=== PATIENT | female | born 1985 | race Caucasian/White ===

== ENCOUNTER 2024-10-18 22:28 | Emergency (ER) | payer MEDICAID ==
[~2024-10-18] VITALS: Ht 170.2 cm; Wt 72.7 kg
[2024-10-18] MEDS ORDERED: DIPH25CA85 PO (23:09)
[2024-10-18] MEDS ORDERED: METH4TAB3 PO (23:09)
[2024-10-18] MEDS ORDERED: EPIN0.3P3 IM (23:09)
[2024-10-18 23:59] VITALS: BP 133/75; PULSE 88; RESP 16; TEMP 97.3; O2SAT 98
== END 2024-10-19 00:04 | disposition home or self-care (01) ==
LOC: EMS 22:30
DX: L25.9 Unspecified contact dermatitis, unspecified cause (principal); Z79.899 Other long term (current) drug therapy
CPT/HCPCS: 99284; 96374; 96375; J2919; J1200